=== PATIENT | female | born 1970 | race Hispanic/Latino ===

== ENCOUNTER → 2024-09-25 | Day surgery (SDC) | payer OTHER ==
[~2024-09-25] MED LIST: DICYCLOMINE HCL10 MG PO; FAMOTIDINE20 MG PO; GLIMEPIRIDE2 MG PO; GLUCAGON FOR INJ 1 MG VIAL ONE; LIDOCAINE HCL 2% LOCAL INJ 5 ML SDV VIAL INJ ONE; LISINOPRIL10 MG PO; MIDAZOLAM HCL 2 MG/2 ML VIAL ONE; PROPOFOL IV EMULSION 10 MG/ML 20 ML VIAL ONE; PROPRANOLOL HCL10 MG PO
[2024-09-25] MEDS: LACTATED RINGER'S 1,000 ML ONE (13:15)
[2024-09-25 14:04] VITALS: TEMP 97.9
[2024-09-25 14:25] VITALS: BP 130/75; PULSE 71; RESP 18; O2SAT 99
== END | disposition home or self-care (01) ==
LOC: OR 11:46
PROVIDERS: ATTEND Internal Medicine Gastroenterology
DX: Z12.11 Encounter for screening for malignant neoplasm of colon (principal); D12.2 Benign neoplasm of ascending colon; D12.4 Benign neoplasm of descending colon; K57.30 Diverticulosis of large intestine without perforation or abscess without bleeding; K64.8 Other hemorrhoids; K21.9 Gastro-esophageal reflux disease without esophagitis; R19.8 Other specified symptoms and signs involving the digestive system and abdomen; I10 Essential (primary) hypertension; R73.03 Prediabetes; E66.9 Obesity, unspecified; F17.210 Nicotine dependence, cigarettes, uncomplicated; Z01.810 Encounter for preprocedural cardiovascular examination; Z79.84 Long term (current) use of oral hypoglycemic drugs; Z79.899 Other long term (current) drug therapy; Z68.35 Body mass index [BMI] 35.0-35.9, adult
CPT/HCPCS: 36415; 45385; 82948; 93005; J1610; J2003; J2250; J2704; J7121; 45378

== ENCOUNTER → 2024-11-02 | Outpatient (REF) | payer OTHER ==
[~2024-11-02] MED LIST changes: -GLUCAGON FOR INJ 1 MG VIAL ONE; -LIDOCAINE HCL 2% LOCAL INJ 5 ML SDV VIAL INJ ONE; -MIDAZOLAM HCL 2 MG/2 ML VIAL ONE; -PROPOFOL IV EMULSION 10 MG/ML 20 ML VIAL ONE
== END ==
LOC: DX 07:52
PROVIDERS: ATTEND Nurse Practitioner Family
DX: K21.9 Gastro-esophageal reflux disease without esophagitis (principal)
CPT/HCPCS: 74246; 74250